=== PATIENT | male | born 1995 | race Caucasian/White ===

== ENCOUNTER 2022-07-24 13:26 | Emergency (ER) | payer MEDICAID, SELFPAY ==
[2022-07-24 14:05] VITALS: BP 113/78; PULSE 100; RESP 18; TEMP 36.9; O2SAT 96; BMI 33.9
--- NOTE | 2022-07-24 16:00 | ED_ITS ---
HPI - Abdominal Pain General: Chief Complaint: Abdominal Pain Stated Complaint: Abd pain Time Seen by Provider: 07/24/22 16:00 Source: patient Mode of arrival: ambulatory History of Present Illness: 27-year-old male presents emergency room complaining of epigastric supraumbilical abdominal discomfort point tenderness. He has not had any fever sweats or chills no nausea or vomiting no hematic hematemesis or coffee-ground emesis. Began over the last couple days has not really taken anything for it. Particularly worsened more today. No nausea vomiting or diarrhea. MD elicited complaint: abdominal pain Onset (ago): day(s) (1) Pain Consistency: constant Location: Periumbilical Severity: moderate Quality: cramping Exacerbating factors: nothing Relieving factors: nothing Associated Symptoms: Reports anorexia and poor appetite; Denies belching, bloating, change in bowel habits, change in stool character, chills, coffee ground emesis, constipation, GI cramping, diarrhea, dyspepsia, dysuria, excessive flatus, fever(s), heartburn, hematochezia, hematuria, hematemesis, fecal incontinence, loose stools, melena, nausea, syncope and vomiting Review of Systems Const: Denies: fever(s), chills, fatigue or malaise ENMT: Denies: throat pain Card: Denies: chest pain or syncope Resp: Denies: dyspnea GI: Reports: abdominal pain; Denies: nausea, vomiting, hematemesis, coffee ground emesis, heartburn, diarrhea, constipation, bloating, GI cramping, belching, excessive flatus, fecal incontinence, change in bowel habits, change in stool character, hematochezia or melena : Denies: dysuria or hematuria PFSH ED PFSH: Medical History No pertinent past medical history Surgical History No pertinent past surgical history Social History Smoking and tobacco status: never smoked Physical Exam Const: COMMON NORMALS: no acute distress GENERAL APPEARANCE: cooperative and comfortable ORIENTATION/CONSCIOUSNESS: Yes awake, Yes oriented to person, Yes oriented to place and Yes oriented to time HENMT: COMMON NORMALS: normocephalic, atraumatic and hearing grossly normal bilaterally HEAD & SCALP: normocephalic and atraumatic Resp: COMMON NORMALS: normal respiratory effort, No retractions, No use of accessory muscles and clear to auscultation bilaterally AUSCULTATION: clear to auscultation bilaterally Cardio: COMMON NORMALS: regular rate, regular rhythm and No murmurs present (Cardio) RATE: regular rate RHYTHM: regular rhythm GI: COMMON NORMALS: No hepatosplenomegaly present AUSCULTATION: Yes normoactive bowel sounds PALPATION: Yes Tenderness to palpation present (GI) (Supraumbilical point tenderness no guarding or rebound), No Guarding due to palpation present (GI) and Yes No hepatosplenomegaly present Extremity: COMMON NORMALS: normal to inspection, capillary refill normal, no clubbing, cyanosis or edema, no calf tenderness and no pedal edema Neuro: SENSORIUM/ORIENTATION: Yes oriented to person, Yes oriented to place and Yes oriented to time Skin: COMMON NORMALS: no rashes or lesions noted GENERAL SKIN EXAM: no rashes or lesions noted Course Vital Signs: Vital signs: Vital Signs Temperature 98.4 F 07/24/22 14:05 Pulse Rate 100 07/24/22 14:05 Respiratory Rate 14 07/24/22 18:44 Blood Pressure 137/80 07/24/22 18:53 Pulse Oximetry 99 07/24/22 18:44 Oxygen Delivery Me thod 07/24/22 14:05 MDM - Abdominal Pain Medical Decision Making White count 15 8 with a differential but the rest of his lab work is unremarkable and his CT is negative. Patient resting comfortably. Went to discharge him home on Protonix clear liquid diet 24 to 48 hours and advance as tolerated if not improving recheck with his primary care doctor if worsen significantly return to the emergency room. On initial exam repeat exam prior to discharge there is no evidence of acute appendicitis or surgical abdomen. Medical Records I reviewed the patient's medical records. Lab Data I reviewed the patient's lab results. : 07/24/22 16:34 07/24/22 16:34 Labs/Radiology: Radiology Impressions Abdomen/Pelvis CT 07/24/22 16:32 IMPRESSION: No acute findings. Laboratory Results WBC 15.8 10^3/uL (4.0-10.0) H 07/24/22 16:34 RBC 5.61 10^6/uL (4.1-5.3) H 07/24/22 16:34 Hgb 16.2 g/dL (11.7-16.6) 07/24/22 16:34 Hct 47.8 % (42.0-52.0) 07/24/22 16:34 MCV 85.2 fl (80-94) 07/24/22 16:34 MCH 28.9 pg (28.0-34.0) 07/24/22 16:34 MCHC 33.9 g/dL (30.0-36.0) 07/24/22 16:34 RDW 13.2 % (12.1-15.1) 07/24/22 16:34 Plt Count 337 10^3/cmm (130-400) 07/24/22 16:34 MPV 9.3 fL (7.4-10.4) 07/24/22 16:34 Neut % (Auto) 67.5 % 07/24/22 16:34 Lymph % (Auto) 19.9 % 07/24/22 16:34 Stearns % (Auto) 8.0 % 07/24/22 16:34 Eos % (Auto) 3.7 % 07/24/22 16:34 Baso % (Auto) 0.4 % 07/24/22 16:34 Neut # (Auto) 10.64 10^3/uL (1.8-7.7) H 07/24/22 16:34 Lymph # (Auto) 3.1 10^3/uL (0.8-4.8) 07/24/22 16:34 Stearns # (Auto) 1.3 10^3/uL (0.2-0.9) H 07/24/22 16:34 Eos # (Auto) 0.6 10^3/uL (0.0-0.8) 07/24/22 16:34 Baso # (Auto) 0.1 10^3/uL (0.0-0.1) 07/24/22 16:34 Nucleated RBC % (auto) 0 % 07/24/22 16:34 Nucleated RBCs # 0.0 /100WBC 07/24/22 16:34 Sodium 137 mmol/L (136-145) 07/24/22 16:34 Potassium 3.9 mmol/L (3.5-5.1) 07/24/22 16:34 Chloride 98 mmol/L (98-107) 07/24/22 16:34 Carbon Dioxide 27 mmol/L (22-29) 07/24/22 16:34 Anion Gap 15.9 (5-19) 07/24/22 16:34 BUN 11 mg/dL (6-20) 07/24/22 16:34 Creatinine 0.9 mg/dL (0.7-1.2) 07/24/22 16:34 GFR Calculation 102.0 mL/min (90-130) 07/24/22 16:34 Glucose 92 mg/dL (65-115) 07/24/22 16:34 Calculated Osmolality 283 mOsm/kg (285-295) L 07/24/22 16:34 Calcium 9.8 mg/dL (8.5-10.5) 07/24/22 16:34 Total Bilirubin 0.4 mg/dL (0.15-1.2) 07/24/22 16:34 AST 28 U/L (0-40) 07/24/22 16:34 ALT 46 U/L (0-41) H 07/24/22 16:34 Alkaline Phosphatase 62 U/L (40-130) 07/24/22 16:34 Total Protein 7.7 g/dL (6.6-8.7) 07/24/22 16:34 Albumin 4.6 g/dL (3.5-5.2) 07/24/22 16:34 Globulin 3.1 g/dL (1.3-4.6) 07/24/22 16:34 Lipase 18 U/L (13-60) 07/24/22 16:34 Urine Color Yellow (Yellow) 07/24/22 16:05 Urine Appearance Clear (CLEAR) 07/24/22 16:05 Urine pH 5 (5-7) 07/24/22 16:05 Ur Specific [place] 1.020 (1.005-1.030) 07/24/22 16:05 Urine Protein Neg (Negative) 07/24/22 16:05 Urine Glucose (UA) Norm (Normal) 07/24/22 16:05 Urine Ketones Negative (Negative) 07/24/22 16:05 Urine Blood Neg (Negative) 07/24/22 16:05 Urine Nitrate Negative (Negative) 07/24/22 16:05 Urine Bilirubin Neg (Negative) 07/24/22 16:05 Urine Urobilinogen Neg mg/dL (Negative) 07/24/22 16:05 Ur Leukocyte Esterase Negative (Negative) 07/24/22 16:05 Discharge Plan Discharge Patient Disposition: Home Clinical Impression: Dyspepsia Condition: Stable Prescriptions: New Protonix 40 mg tablet,delayed release (DR/EC) 40 mg PO DAILY Qty: 30 0RF No Action amoxicillin 500 mg capsule 500 mg PO BID Qty: 14 0RF phentermine 37.5 mg Tablet 18.75 - 37.5 mg PO DAILY PRN (Reason: weight management) lisinopril-hydrochlorothiazide 20-12.5 mg tablet 1 tab PO QAM Rx Instructions: needs appointment Singulair 10 mg tablet 10 mg PO QAM Discharge Orders: Discharge ED (Routine); Ordered 07/24/22 Ordered By: Destin Broussard Referrals: Za Deras MD [Primary Care Provider] - Patient Instructions: Opioid Safety, Pain Management Activity Restrictions/Additional Instructions: Folow up with you primary care doctor if not improving. Coding Level of Care Code ED Health Benefits Specialist for Keyshawn Tavarez
[2022-07-24 16:17] LABS: Add Urine Microscopic? NO; Charge for UA Resulting for Rev
[2022-07-24 16:20] LABS: Bilirubin Urine Neg (Negative); Blood Urine Neg (Negative); Glucose Urine UA Norm (Normal); Ketones Urine Negative (Negative); Leukocyte Esterase Urine Negative (Negative); Nitrate Urine Negative (Negative); Protein Urine Neg (Negative); Urine Appearance Clear (CLEAR); Urine Color Yellow (Yellow); Urobilinogen Urine Neg (Negative); pH Urine 5 (5-7)
--- NOTE | 2022-07-24 16:32 | CTR_ITS ---
PROCEDURE INFORMATION: Exam: CT Abdomen And Pelvis Without Contrast Exam date and time: 07/24/2022 5:04 PM Age: 27 years old Clinical indication: Abdominal pain; Localized; Other: Just above umbilicus TECHNIQUE: Imaging protocol: Computed tomography of the abdomen and pelvis without contrast. Radiation optimization: All CT scans at this facility use at least one of these dose optimization techniques: automated exposure control; mA and/or kV adjustment per patient size (includes targeted exams where dose is matched to clinical indication); or iterative reconstruction. COMPARISON: CR XR pelvis 1-2V* [id number] 05/23/2016 4:49 PM RADIATION DOSE METRICS: Total DLP (mGy-cm): 1025.55 FINDINGS: Liver: Normal. No mass. Gallbladder and bile ducts: Normal. No calcified stones. No ductal dilation. Pancreas: Normal. No ductal dilation. Spleen: Normal. No splenomegaly. Adrenal glands: Normal. No mass. Kidneys and ureters: No renal stones. No hydronephrosis. Stomach and bowel: Unremarkable. No obstruction. No mucosal thickening. Appendix: No evidence of appendicitis. Intraperitoneal space: Unremarkable. No free air. No significant fluid collection. Vasculature: Unremarkable. No abdominal aortic aneurysm. Lymph nodes: Unremarkable. No enlarged lymph nodes. Urinary bladder: Unremarkable as visualized. Reproductive: Unremarkable as visualized. Bones/joints: No acute fracture. Soft tissues: Unremarkable. CT/CT abdomen pelvis con [id number] IMPRESSION: No acute findings.
[2022-07-24 16:49] LABS: Basophils # 0.1 10^3/uL (0.0-0.1); Basophils % 0.4 %; Eosinophils # 0.6 10^3/uL (0.0-0.8); Eosinophils % 3.7 %; Hematocrit 47.8 % (42.0-52.0); Hemoglobin 16.2 g/dL (11.7-16.6); Lymphocytes # 3.1 10^3/uL (0.8-4.8); Lymphocytes % 19.9 %; Mean Corpuscular HGB Conc 33.9 g/dL (30.0-36.0); Mean Corpuscular Hemoglobin 28.9 pg (28.0-34.0); Mean Corpuscular Volume 85.2 fl (80-94); Mean Platelet Volume 9.3 fL (7.4-10.4); Monocytes # 1.3 10^3/uL (0.2-0.9); Neutrophils # 10.64 10^3/uL (1.8-7.7); Neutrophils % 67.5 %; Nucleated Red Blood Cells % 0 %; Platelet Count 337 10^3/cmm (130-400); Red Blood Count 5.61 10^6/uL (4.1-5.3); Red Cell Distribution Width 13.2 % (12.1-15.1); White Blood Count 15.8 10^3/uL (4.0-10.0)
[2022-07-24 17:27] LABS: Alanine Aminotransferase 46 U/L (0-41); Albumin Level 4.6 g/dL (3.5-5.2); Alkaline Phosphatase 62 U/L (40-130); Anion Gap 15.9 (5-19); Aspartate Amino Transferase 28 U/L (0-40); Blood Urea Nitrogen 11 mg/dL (6-20); Calcium 9.8 mg/dL (8.5-10.5); Carbon Dioxide 27 mmol/L (22-29); Chloride 98 mmol/L (98-107); Creatinine Clr Calc Pharmacy 161.7097; Globulin 3.1 g/dL (1.3-4.6); Glucose 92 mg/dL (65-115); Lipase 18 U/L (13-60); Osmolality Calculated 283 mOsm/kg (285-295); Potassium 3.9 mmol/L (3.5-5.1); Sodium 137 mmol/L (136-145); Total Bilirubin 0.4 mg/dL (0.15-1.2); Total Protein 7.7 g/dL (6.6-8.7)
[2022-07-24 18:44] VITALS: BP 138/70; RESP 14; O2SAT 99
[2022-07-24 18:53] VITALS: BP 137/80
== END 2022-07-24 18:54 | disposition home or self-care (01) ==
PROVIDERS: Emergency Provider Family Medicine; PCP Pediatrics Adolescent Medicine
DX: R10.13 Epigastric pain (principal)
CPT/HCPCS: 74176; 80053; 81003; 83690; 85025; 99284